=== PATIENT | female | born 1940 | race Caucasian/White ===

== ENCOUNTER 2018-02-08 01:55 | Inpatient (IN) | payer MEDICARE ==
[~2018-02-08] VITALS: Ht 152.4 cm; Wt 59.5 kg
[2018-02-08] VITALS (8 sets, daily range): BP systolic 83–119; BP diastolic 43–61
[~2018-02-08 01:55] MED LIST: ADLT ASA LOW81 MG PO; ADVIL PM1 CAP PO; BAYER LOW81 MG PO; BENTYL10 MG PO; BIOTIN1000 MCG PO; CALCIUM600 M2 PO; COD LIVER PO; DILAUDID2 MG PO; FENOFIBRATE134 MG PO; FLEXERIL PO; HYDROCO/APAP1 T10 PO; KRILL OIL OMEG300 MG PO; LEG CRAMP RELIEF PO; LEVOTHYROXIN100 MC1 PO; LEVOTHYROXIN25 MC1 PO; LEVOTHYROXIN75 MCG PO; LEVOTHYROXIN88 MC1 PO; LORTAB 5/3255 MG PO; LORTAB 7.5 PO; LOTRISONE TOP; MEDDOSEPAK PO; MELOXICAM15 MG PO; MELOXICAM7.5 MG PO; METFORMIN500 MG PO; MOTRIN IB200 MG PO; MULTI VIT PO; OCUVIT1 PO; PREMARIN0.625 MG PO; REMIFEMIN PO; TEMAZEPAM15 MG PO; TORADOL OR; VITAMIN D31000 UNI1 PO; ZOLOFT50 MG PO; [UNRECOGNIZED DRUG - OTHER] PO
--- NOTE | 2018-02-08 01:55 | NUR ---
PT TO ROOM 12 BY EMS FOR FLU SYMPTOMS PER PT. STATES GENERAL WEAKNESS AND BODY ACHES STARTED 2 DAYS AGO. SAW HER PMD ON SUNDAY BUT WAS FINE AT THE TIME. SYMPTOMS STARTED THAT NIGHT. MOUTH AND TONGUE VERY DRY. PT REQUESTING WATER.
[2018-02-08] MEDS ORDERED: ATORVASTATIN CA10 MG PO (02:49)
[2018-02-08] MEDS ORDERED: LOPID600 MG PO (02:50)
--- NOTE | 2018-02-08 02:52 | NUR ---
Pt brought to ED via EMS. Temp of 102.8. 18 Ga. angiocath in right forearm. Labs drawn along with Blood Cultures. Flu & Strep cultures obtained. Pt C/O being cold. Obtaining Tylenol order from for fever.
[2018-02-08 03:02] LABS: HEMATOCRIT 41.3 % (37.0-47.0); IMMATURE GRANULOCYTES 0.7 % (0.0-1.0); MEAN CELL VOLUME 88.8 fL CALC (80.0-100.0); MEAN CORPUSCULAR HGB 30.1 pG CALC (26.0-32.0); MEAN CORPUSCULAR HGB CONC 33.9 g/L CALC (32.0-36.0); NEUT# 17.1 thou/uL (2.00-7.15); RED BLOOD COUNT 4.65 mill/uL (4.20-5.60); RED CELL DISTRI WIDTH 13.7 % (11.5-15.5)
[2018-02-08 03:11] LABS: ALBUMIN 4.1 g/dL (3.2-5.0); BILIRUBIN, TOTAL 0.7 mg/dL (0.0-1.4); CREATININE 1.2 mg/dL (0.5-1.0); POTASSIUM 3.9 mmol/l (3.5-5.1); TOTAL PROTEIN 6.7 g/dL (6.3-8.2)
[2018-02-08 03:16] LABS: INFLUENZA A NONE DETECTED (NONE DETECT); INFLUENZA B NONE DETECTED (NONE DETECT)
--- NOTE | 2018-02-08 03:57 | NUR ---
pt resting comfortably at this time. 2nd liter of NS hanging at this time.
--- NOTE | 2018-02-08 04:07 | NUR ---
Pt resting comfortably at this time. Appears to be sleeping at this time. Naranjo catheter in place and draining yellow urine.
[2018-02-08 04:21] LABS: URINE BILIRUBIN - DIPSTICK NEGATIVE (NEGATIVE); URINE BLOOD DIPSTICK MODERATE (NEGATIVE); URINE COLOR YELLOW; URINE GLUCOSE - DIPSTICK NEGATIVE (NEGATIVE); URINE KETONE NEGATIVE (NEGATIVE); URINE PH 5.5 (4.5-8.0); URINE PROTEIN - DIPSTICK 30 mg/dL (NEG-TRACE); URINE UROBILINOGEN - DIPSTICK 0.2 E.U./dL (0.2)
[2018-02-08 04:23] LABS: URINE CLARITY TURBID; URINE LEUK ESTERASE SMALL (NEGATIVE); URINE NITRITE - DIPSTICK POSITIVE (Negative)
[2018-02-08 04:28] LABS: URINE BACTERIA MODERATE hpf; URINE SQUAMOUS EPITHELIAL CELL FEW EPI/hpf (0-FEW)
--- NOTE | 2018-02-08 04:59 | NUR ---
PT HAVING CHEST X-RAY AT THIS TIME.
--- NOTE | 2018-02-08 05:35 | NUR ---
PATIENT ARRIVED TO THE FLOOR IN STABLE CONDITION VIA STRETCHER AND ACCOMPANIED BY ED NURSE. PATIENT WEIGHED AND SETTLED TO BED. ORIENT PATIENT TO ROOM CALL SYSTEM. BED IN LOW POSITION AND CALL LIGHT IN REACH.
--- NOTE | 2018-02-08 05:39 | NUR ---
REPORT CALLED TO KIERAN FOR ROOM 268. PT CHANGED INTO HOSPITAL GOWN. TELEMETRY BOX ON. 2ND N.S. LITER COMPLETE. PT AWAKE AND CONVERSING ABOUT HOSPITAL STAY.
--- NOTE | 2018-02-08 07:00 | NUR ---
BEDSIDE REPORT RECEIVED BY MEE. PT IS SLEEPING WITH NO S/S OF DISTRESS NOTED. CALL LIGHT IN REACH.
--- NOTE | 2018-02-08 07:00 | NUR ---
CHANGE OF SHIFT REPORT GIVEN LORENZO BERTRAND.
--- NOTE | 2018-02-08 08:00 | NUR ---
ASSESSMENT DONE AND TELE IN PLACE. RESPS EVEN AND UNLABORED. NS INFUSING WELL. PT DENIES PAIN AT THIS TIME. ORIENTED TO CALL LIGHT AND SAFETY PRECAUTIONS REINFORCED.
--- NOTE | 2018-02-08 08:30 | NUR ---
DR MCKEON AT BEDSIDE TO ASSESS PT. D/C SEPSIS PROTOCOL AT THIS TIME.
--- NOTE | 2018-02-08 11:36 | NUR ---
PT STATED THAT SHE IS COLD. CHECK TEMP AND IS 100.1. MADE ROOM COOL AND WASHCLOTH GIVEN. WILL CONTINUE TO MONITOR. PT DENIES ANY OTHER NEEDS AT THIS TIME. CALL LIGHT IN REACH.
--- NOTE | 2018-02-08 12:25 | NUR ---
PT IS SLEEPING WITH NO S/S OF DISTRESS NOTED. CALL LIGHT IN REACH.
--- NOTE | 2018-02-08 12:54 | NUR ---
CALLED DR. MCKEON RE: PT TEMP 101.1. ORDERS RECEIVED.
--- NOTE | 2018-02-08 16:00 | NUR ---
PT IS RESTING IN BED AND DENIES NEEDS AT THIS TIME. WILL CONTINUE TO MONITOR PT. CALL LIGHT IN REACH.
--- NOTE | 2018-02-08 20:57 | NUR ---
PT.MEDICATED ORDERS PROVIDE. PT.ROOM IS COOLED AND BLANKETS REMOVED FOR TEMP. UPON REASSESSMENT TEMP IS READING 99.0 PT.DENIES ANY OTHER NEEDS AT THIS TIME. CALL LIGHT IS W/IN REACH AND PT.INSTRUCTED TO CALL IF ANY NEEDS ARISE.
--- NOTE | 2018-02-09 02:49 | NUR ---
PT.CALLED TO REQUEST A CUP OF COFFEE. PT.HAS LIGHTS ON AND WATCHING TV, DENIES ANY OTHER NEEDS AT THIS TIME. CALL LIGHT IS W/IN REACH
[2018-02-09 04:15] VITALS: BP 103/61
[2018-02-09 05:53] LABS: ALKALINE PHOSPHATASE 85 u/l (38-126); ANION GAP 13 (6-22 (CALC)); BILIRUBIN, TOTAL 0.6 mg/dL (0.0-1.4); BUN 10 mg/dL (8-23); BUN/CREATININE RATIO 13 (12-20 (CALC)); CARBON DIOXIDE 21 mmol/l (22-30); CHLORIDE 107 mmol/l (95-108); CREATININE 0.8 mg/dL (0.5-1.0); GFR > 60 ML/MIN (>=60 (CALC)); GFR FOR AFR.AMER. > 60 ML/MIN (>=60 (CALC)); POTASSIUM 3.8 mmol/l (3.5-5.1); SGPT/ALT 57 u/l (11-66); SODIUM 137 mmol/l (137-146)
--- NOTE | 2018-02-09 05:55 | NUR ---
PT.MEDICATED W/SYNTHROID ORDERED, IV FLUIDS ARE RUNNING AT THIS TIME, PT.IS SITTING ON SIDE OF BED W/LIGHTS ON. DENIES ANY OTHER NEEDS AT THIS TIME, CALL LIGHT IS AT BEDSIDE W/IN REACH AND PT.HAS BEEN ENCOURAGED TO CALL IF ANY NEEDS ARISE.
[2018-02-09 05:57] LABS: ALBUMIN 2.7 g/dL (3.2-5.0); SGOT/AST 66 u/l (9-36)
[2018-02-09 05:58] LABS: HEMOGLOBIN 10.6 g/dl (12.0-16.0); IMMATURE GRANULOCYTES 0.4 % (0.0-1.0); MEAN CELL VOLUME 88.3 fL CALC (80.0-100.0); MEAN CORPUSCULAR HGB 30.3 pG CALC (26.0-32.0); MEAN CORPUSCULAR HGB CONC 34.3 g/L CALC (32.0-36.0); NEUT# 10.86 thou/uL (2.00-7.15); RED BLOOD COUNT 3.5 mill/uL (4.20-5.60); RED CELL DISTRI WIDTH 13.7 % (11.5-15.5)
[2018-02-09 05:59] LABS: HEMATOCRIT 30.9 % (37.0-47.0)
--- NOTE | 2018-02-09 07:00 | NUR ---
RECEIVED BEDSIDE REPORT FROM RAUL VENTURA. RESTING IN BED ON RIGHT SIDE WITH EYES CLOSED, AWAKENS EASILY. RESPS EVEN AND UNLABORED ON ROOM AIR, TELE MONTIOR IN PLACE. #18 INFUSING WITHOUT DIFFICULTY, SITE APPEARS HEALTHY. ALVAREZ PATENT DRAINING YELLOW URINE TO GRAVITY, STRAP TO UPPER RIGHT LEG. DENIES PAIN OR DISCOMFORT. PLAN OF CARE DISCUSSED. SAFETY PRECAUTIONS REINFORCED. BED IN LOWEST POSITON WITH WHEELS LOCKED. CALL LIGHT WITHIN REACH. WILL CONTINUE TO MONITOR.
[2018-02-09 08:16] VITALS: BP 104/47
--- NOTE | 2018-02-09 08:50 | NUR ---
DR MCKEON IN WITH PT, NEW ORDERS RECEIVED.
--- NOTE | 2018-02-09 09:30 | NUR ---
ALVAREZ REMOVED WITHOUT DIFFICULTY, 10CC FLUID IN BALLOON, 500CC YELLOW URINE IN BAG. PT INSTRUCTED TO NOTIFY NURSE WITH URGE TO VOID TO MEASURE. PT VERBALIZED UNDERSTANDING. CALL LIGHT WITHIN REACH.
[2018-02-09 10:08] LABS: URINE BILIRUBIN - DIPSTICK NEGATIVE (NEGATIVE); URINE BLOOD DIPSTICK SMALL (NEGATIVE); URINE COLOR YELLOW; URINE GLUCOSE - DIPSTICK NEGATIVE (NEGATIVE); URINE KETONE NEGATIVE (NEGATIVE); URINE LEUK ESTERASE SMALL (Negative); URINE NITRITE - DIPSTICK NEGATIVE (Negative); URINE PROTEIN - DIPSTICK NEGATIVE (NEG-TRACE); URINE SPECIFIC GRAVITY 1.015; URINE UROBILINOGEN - DIPSTICK 0.2 E.U./dL (0.2)
[2018-02-09 10:10] LABS: URINE CLARITY SL CLOUDY; URINE EPITHELIAL CELLS RARE EPI/hpf (0-FEW); URINE RBC 0-2 RBC/hpf (0-5); URINE WBC 0-2 WBC/hpf (0-5)
[2018-02-09 10:49] VITALS: BP 118/66
--- NOTE | 2018-02-09 11:15 | NUR ---
VOIDED 100CC YELLOW URINE WITHOUT DIFFICULTY.
--- NOTE | 2018-02-09 12:00 | NUR ---
SITTING ON EDGE OF BED EATING LUNCH. RESPS EVEN AND UNLABORED ON ROOM AIR, TELE MONTIOR IN PLACE. #18 RAC INFUSING WITHOUT DIFFICULTY, SITE APPEARS HEALTHY. TOLERATING SOFT DIET WITHOUT C/O ABD PAIN OR NAUSEA. CALL LIGHT WITHIN REACH. WILL CONTINUE TO MONITOR.
--- NOTE | 2018-02-09 16:13 | NUR ---
SITTING ON EDGE OF BED. RESPS EVEN AND UNLABORED ON ROOM AIR, TELE MONTIOR IN PLACE. DENIES PAIN OR DISCOMFORT. PO FLUIDS OFFERED. #18 RAC INFUSING WITHOUT DIFFICULTY, SITE APPEARS HEALTHY. PT REFUSED TO HAVE NEW IV STARTED, "WILL TALK ABOUT IT TOMORROW IF I AM STILL HERE." CALL LIGHT WITHIN REACH. WILL CONTINUE TO MONITOR.
--- NOTE | 2018-02-09 16:36 | NUR ---
MEDICATED WITH TYLENOL PO FOR TYMPANIC TEMP 101.0. PO FLUIDS OFFERED.
[2018-02-09 17:03] VITALS: BP 120/73
[2018-02-09 19:00] VITALS: BP 121/75
--- NOTE | 2018-02-09 19:00 | NUR ---
REPORT RECEIVED FROM DAY NURSE. PT.IS UPRIGHT IN BED WATCHING TV, DENIES ANY PAIN/N/V OR OTHER NEEDS AT THIS TIME. CALL LIGHT IS ON BEDSIDE TABLE W/IN REACH.
--- NOTE | 2018-02-09 23:07 | NUR ---
PT.IV FLUIDS RENEWED, PT.AWOKE I ENTERED ROOM, DENIES ANY NEEDS AT THIS TIME. CALL LIGHT IS W/IN REACH. PT.LEFT RETURNING TO SLEEP W/LIGHTS OUT AND BED IN LOWEST POSITION.
--- NOTE | 2018-02-10 00:29 | NUR ---
PT.MEDICATED W/TYLENOL FOR TEMP OF 102.1, ROOM COOLED AND BLANKETS REMOVED. WILL REASSESS.
[2018-02-10 00:50] VITALS: BP 149/78
[2018-02-10 03:57] VITALS: BP 111/65
--- NOTE | 2018-02-10 03:57 | NUR ---
PT.TEMP IS 97.8 AT THIS TIME, V/S ASSESSED. PT.DENIES ANY NEEDS, SHE WAS AWAKE WATCHING TV, CALL LIGHT IN HAND
[2018-02-10 05:23] LABS: HEMATOCRIT 30.8 % (37.0-47.0); HEMOGLOBIN 10.4 g/dl (12.0-16.0); IMMATURE GRANULOCYTES 0.6 % (0.0-1.0); MEAN CELL VOLUME 88.8 fL CALC (80.0-100.0); MEAN CORPUSCULAR HGB CONC 33.8 g/L CALC (32.0-36.0); NEUT# 6.45 thou/uL (2.00-7.15); RED BLOOD COUNT 3.47 mill/uL (4.20-5.60); RED CELL DISTRI WIDTH 13.9 % (11.5-15.5)
[2018-02-10 05:45] LABS: ALBUMIN 2.9 g/dL (3.2-5.0); ALKALINE PHOSPHATASE 90 u/l (38-126); ANION GAP 14 (6-22 (CALC)); BILIRUBIN, TOTAL 0.4 mg/dL (0.0-1.4); BUN 8 mg/dL (8-23); BUN/CREATININE RATIO 10 (12-20 (CALC)); CARBON DIOXIDE 23 mmol/l (22-30); CHLORIDE 108 mmol/l (95-108); CREATININE 0.8 mg/dL (0.5-1.0); GFR > 60 ML/MIN (>=60 (CALC)); GFR FOR AFR.AMER. > 60 ML/MIN (>=60 (CALC)); POTASSIUM 3.6 mmol/l (3.5-5.1); SGOT/AST 64 u/l (9-36); SGPT/ALT 72 u/l (11-66); SODIUM 141 mmol/l (137-146); TOTAL PROTEIN 5.1 g/dL (6.3-8.2)
--- NOTE | 2018-02-10 05:54 | NUR ---
PT.MEDICATED ORDERS PROVIDE. PT. IS UPRIGHT IN BED WATCHING TV W/LIGHTS LOW. REQUESTED A CUP OF COFFEE/PROVIDED.
--- NOTE | 2018-02-10 07:00 | NUR ---
RECEIVED BEDSIDE REPORT FROM RAUL VENTURA. RESTING IN BED WITH EYES CLOSED, AWAKENS EASILY. RESPS EVEN AND UNLABORED ON ROOM AIR, TLE MONITOR IN PLACE. #18 RAC INFUSING WITHIUT DUIFFICULTY, SITE APPEARS HEALTHY. DENIES PAIN OR DISCOMFORT. PLAN OF CARE DISCUSSED. SAFETY PRECAUTIONS REINFORCED. BED IN LOWEST POSITION WITH WHEELS LOCKED. CALL LIGHT WITHIN REACH. WILL CONTINUE TO MONITOR.
[2018-02-10 08:06] VITALS: BP 129/64
--- NOTE | 2018-02-10 08:50 | NUR ---
DR MCKEON IN WITH PT, NEW ORDERS RECEIVED.
[2018-02-10] MEDS ORDERED: CIPROFLOXACN500 MG PO (09:06)
--- NOTE | 2018-02-10 12:10 | NUR ---
IV site discontinued, cath intact. No edema , no redness, voices no discomfort.
--- NOTE | 2018-02-10 12:25 | NUR ---
Discharge instructions given. Patient verbalizes understanding of same. Discharged in stable condition via Wheelchair to Home with spouse. All belongings sent with pt.
== END 2018-02-10 12:25 | disposition home or self-care (01) | DRG 690 ==
LOC: ED 01:55 → ED-I 04:00 → ED 05:05 → MS2 05:06
PROVIDERS: Emergency Medicine; ADMIT Internal Medicine Geriatric Medicine; ATTEND Internal Medicine Geriatric Medicine
PROC: 0T9B70Z Drainage of Bladder with Drainage Device, Via Natural or Artificial Opening (ICD-10-PCS; principal; 2018-02-08)
DX: N39.0 Urinary tract infection, site not specified (principal); E11.9 Type 2 diabetes mellitus without complications; E03.9 Hypothyroidism, unspecified; E78.5 Hyperlipidemia, unspecified; B96.20 Unspecified Escherichia coli [E. coli] as the cause of diseases classified elsewhere; I10 Essential (primary) hypertension; I25.10 Atherosclerotic heart disease of native coronary artery without angina pectoris; F41.9 Anxiety disorder, unspecified; Z91.81 History of falling

== ENCOUNTER 2018-08-13 11:50 | Emergency (ER) | payer MEDICARE ==
[~2018-08-13] VITALS: Ht 152.4 cm; Wt 56.8 kg
[~2018-08-13 11:50] MED LIST changes: +ATORVASTATIN CA10 MG PO; +CIPROFLOXACN500 MG PO; +LOPID600 MG PO
[2018-08-13] MEDS ORDERED: DELTASONE20 MG PO (13:11)
[2018-08-13 13:25] VITALS: BP 142/66
== END 2018-08-13 13:25 | disposition home or self-care (01) ==
LOC: ED 11:50
DX: T63.441A Toxic effect of venom of bees, accidental (unintentional), initial encounter (principal); M79.89 Other specified soft tissue disorders; I10 Essential (primary) hypertension; E11.9 Type 2 diabetes mellitus without complications; F17.210 Nicotine dependence, cigarettes, uncomplicated

== ENCOUNTER → 2019-02-10 | Outpatient (REF) | payer MEDICARE ==
[~2019-02-10] MED LIST changes: +DELTASONE20 MG PO
[2019-02-10 09:33] LABS: HEMATOCRIT 43.8 % (37.0-47.0); HEMOGLOBIN 14.3 g/dl (12.0-16.0); IMMATURE GRANULOCYTES 0.4 % (0.0-5.0); MEAN CELL VOLUME 90.1 fL CALC (80.0-100.0); MEAN CORPUSCULAR HGB 29.4 pG CALC (26.0-32.0); MEAN CORPUSCULAR HGB CONC 32.6 g/L CALC (32.0-36.0); NEUT# 5.26 thou/uL (2.00-7.15); RED BLOOD COUNT 4.86 mill/uL (4.20-5.60); RED CELL DISTRI WIDTH 13.3 % (11.5-15.5)
[2019-02-10 10:13] LABS: ALBUMIN 4.9 g/dL (3.2-5.0); ALKALINE PHOSPHATASE 88 u/l (38-126); ANION GAP 15 (6-22 (CALC)); BILIRUBIN, TOTAL 0.4 mg/dL (0.0-1.4); BUN 19 mg/dL (8-23); BUN/CREATININE RATIO 25 (12-20 (CALC)); CALCULATED LDLCHOLESTEROL 90 mg/dL (62-129 (CALC)); CARBON DIOXIDE 26 mmol/l (22-30); CHLORIDE 105 mmol/l (95-108); CREATININE 0.8 mg/dL (0.5-1.0); GFR > 60 ML/MIN (>=60 (CALC)); GFR FOR AFR.AMER. > 60 ML/MIN (>=60 (CALC)); HDL CHOLESTEROL 56 mg/dL (>=40); POTASSIUM 4.4 mmol/l (3.5-5.1); SGOT/AST 20 u/l (9-36); SODIUM 142 mmol/l (137-146); TOTAL CHOLESTEROL 172 mg/dl (0-199); TOTAL PROTEIN 7.8 g/dL (6.3-8.2); TRIGLYCERIDES REFLEX TO dLDL 127 mg/dl (30-149); VLDL CHOLESTROL 25 mg/dl (0-48 (CALC))
[2019-02-10 10:36] LABS: TSH, 3RD GENERATION 0.78 uIU/mL (0.47 - 4.68)
== END | disposition home or self-care (01) ==
LOC: LAB 08:52
PROVIDERS: ATTEND Internal Medicine Geriatric Medicine
DX: E78.2 Mixed hyperlipidemia (principal); E03.9 Hypothyroidism, unspecified; I10 Essential (primary) hypertension